=== PATIENT | female | born 1955 ===

== ENCOUNTER 2018-05-25 10:34 | Emergency (ER) | payer OTHER ==
[2018-05-25 11:41] VITALS: BP 97/61
--- NOTE | 2018-05-25 12:25 | UC ---
FLU HPI - HPI Summary HPI Summary: Vomited about 3 times yesterday morning and feels "like I was hit with a [employer] truck with fever, chills, body aches, dry cough, sore throat. - History of Current Complaint Chief Complaint: UCGeneralIllness Stated Complaint: HEADACHE,SORE THROAT,FEVER,CHILLS Time Seen by Provider: 05/25/18 12:14 Hx Obtained From: Patient ?: No Onset/Duration: Sudden Onset - Sudden onset of flu-like illness on Friday, sore throat the past 2 days as well Severity Currently: Moderate Severity Initially: Mild Pain Intensity: 0 Associated Signs & Symptoms: Positive: Fever, Myalgia, Cough, Sore Throat, Nasal Congestion, Headache, Vomiting - Allergy/Home Medications Allergies/Adverse Reactions: Allergies Allergy/AdvReac Type Severity Reaction Status Date / Time amoxicillin [From Augmentin] Allergy GI Upset Verified 05/25/18 11:41 cephalexin [From Keflex] Allergy Hives Verified 05/25/18 11:41 clavulanic acid Allergy GI Upset Verified 05/25/18 11:41 [From Augmentin] PMH/Surg Hx/FS Hx/Imm Hx Previously Healthy: Yes - Surgical History Surgical History: Yes Surgery Procedure, Year, and Place: - Family History Known Family History: Positive: Diabetes - Brother with diabetes - Social History Alcohol Use: Rare Substance Use Type: None Smoking Status (MU): Former Smoker Review of Systems All Other Systems Reviewed And Are Negative: Yes Constitutional: Positive: Fever, Chills ENT: Positive: Sore Throat, Nasal Discharge Respiratory: Positive: Cough - Dry cough Musculoskeletal: Positive: Myalgia Neurological: Positive: Headache - Mild headache Is Patient Immunocompromised?: No Physical Exam Triage Information Reviewed: Yes Appearance: Well-Appearing, No Pain Distress, Well-Nourished Vital Signs: Initial Vital Signs Temp 99.8 F 05/25/18 11:36 Pulse 94 05/25/18 11:36 Resp 16 05/25/18 11:36 BP 97/61 05/25/18 11:36 Pulse Ox 97 05/25/18 11:36 Vital Signs Reviewed: Yes Eye Exam: Normal ENT: Positive: Pharynx normal, Nasal congestion, TMs normal, Uvula midline. Negative: Tonsillar swelling, Tonsillar exudate, Trismus, Muffled voice, Hoarse voice Neck exam: Normal Neck: Positive: Supple, Nontender, No Lymphadenopathy Respiratory: Positive: Lungs clear, Normal breath sounds, No respiratory distress, No accessory muscle use Cardiovascular: Positive: RRR, No Murmur, Pulses Normal, Brisk Capillary Refill Abdominal Exam: Normal Abdomen Description: Positive: Nontender, No Organomegaly, Soft Bowel Sounds: Positive: Present Musculoskeletal Exam: Normal Neurological Exam: Normal Psychological Exam: Normal Skin Exam: Normal Flu Course/Dx - Course Course Of Treatment: Comfortable here. Rapid strep is negative. I believe the history and exam are consistent with the flu and since she is still within the treatment period will treat with Tamiflu. - Differential Dx/Diagnosis Differential Diagnosis/HQI/PQRI: Influenza, Upper Respiratory Infection Provider Diagnosis: Influenza Discharge - Sign-Out/Discharge Documenting (check all that apply): Patient Departure All imaging exams completed and their final reports reviewed: No Studies - Discharge Plan Condition: Fair Disposition: HOME Prescriptions: Oseltamivir CAP* [Tamiflu CAP*] 75 mg PO BID 5 Days #10 cap Patient Education Materials: Influenza (DC) Referrals: Miguel A Ge MD [Primary Care Provider] - Additional Instructions: Increase fluids, Tylenol every 4 hours for fever and may alternate with Motrin every 8 hours with food as needed. Follow up with your doctor if no improvement in 4-5 days. - Billing Disposition and Condition Condition: FAIR Disposition: Home
== END 2018-05-25 12:55 | disposition home or self-care (01) ==
LOC: UCCORT 10:34
DX: J11.1 Influenza due to unidentified influenza virus with other respiratory manifestations (principal)
CPT/HCPCS: 87651; 99212; G0463